=== PATIENT | female | born 1975 | race Hispanic/Latino ===

== ENCOUNTER 2016-10-04 09:24 | Emergency (ER) | payer SELFPAY ==
[2016-10-04 09:57] VITALS: BP 112/64
--- NOTE | 2016-10-04 11:24 | XRay Report ---
ROUTINE CHEST, TWO VIEWS: HISTORY: Cough. The trachea, heart, mediastinal contour, lung olson and bony thorax are unremarkable. IMPRESSION: Unremarkable chest x-ray.
--- NOTE | 2016-10-04 11:37 | Emergency Department Report ---
- General Chief Complaint: Upper Respiratory Infection Stated Complaint: CHEST PAIN, RIGHT SIDE HURTS Time Seen by Provider: 10/04/16 10:44 Source: patient Mode of arrival: Ambulatory Limitations: No Limitations - History of Present Illness Initial Comments: Patient is a 41-year-old female who presents due to cough, sinus pressure and nasal congestion 4 days. Patient states that she went to her primary care provider 3 days ago and was diagnosed with influenza virus. Patient says that she was prescribed cold remedies and Tamiflu. Patient states that she felt better the next day but the symptoms returned. Patient states that she has chest wall pain when coughing. Patient denies any shortness of breath or dyspnea on exertion. Patient states that she had a fever on but has not had a fever since. Patient denies any nausea, vomiting or diaphoresis. She denies any arm pain, patient denies any history of CAD MD Complaint: fever, cough, sore throat, nasal congestion Onset/Timin -: days(s) Severity scale (0 -10): 7 Quality: sharp Consistency: intermittent Improves With: nothing Worsens With: other (coughing) Associated Symptoms: headache, rhinorrhea, nasal congestion, sore throat, cough , dysuria. denies: chest pain, shortness of breath, abdominal pain, nausea, vomiting, diarrhea, rash, confusion, weight loss, epistaxis, hoarseness, ear pain, other Treatments Prior to Arrival: "cold medicine", other (tamiflu) - Related Data Previous Rx's Medication Instructions Recorded Last Taken Type Azithromycin [Zithromax Z-CASIE] 250 mg PO DAILY #6 tab 10/04/16 Unknown Rx Fluticasone [Flonase] 1 spray NS QDAY #1 bottle 10/04/16 Unknown Rx Ibuprofen [Motrin 800 MG tab] 800 mg PO Q8HR PRN #30 tablet 10/04/16 Unknown Rx guaiFENesin/CODEINE [Robitussin AC] 5 ml PO Q6HR PRN #120 oral.liqd 10/04/16 Unknown Rx Allergies Allergy/AdvReac Type Severity Reaction Status Date / Time Penicillins Allergy Swelling Verified 10/04/16 09:57 ED Review of Systems ROS: Stated complaint: CHEST PAIN, RIGHT SIDE HURTS Other details as noted in HPI Comment: All other systems reviewed and negative Constitutional: no symptoms reported. denies: chills, diaphoresis, fever, malaise, weakness Eyes: denies: eye pain, eye discharge, vision change ENT: throat pain, congestion. denies: ear pain, dental pain, hearing loss, epistaxis Respiratory: cough. denies: orthopnea, shortness of breath, SOB with exertion, SOB at rest, stridor, wheezing Cardiovascular: chest pain. denies: palpitations, dyspnea on exertion, orthopnea, edema, syncope, paroxysmal nocturnal dyspnea Endocrine: no symptoms reported Gastrointestinal: denies: abdominal pain, nausea, vomiting, diarrhea, constipation, hematemesis, melena, hematochezia Genitourinary: denies: urgency, dysuria, frequency, hematuria, discharge, abnormal menses, dyspareunia Musculoskeletal: denies: back pain Skin: denies: rash, lesions Neurological: headache. denies: weakness, numbness, paresthesias, confusion Psychiatric: denies: anxiety ED Past Medical Hx - Medications Home Medications: Home Medications Medication Instructions Recorded Confirmed Last Taken Type Azithromycin [Zithromax Z-CASIE] 250 mg PO DAILY #6 tab 10/04/16 Unknown Rx Fluticasone [Flonase] 1 spray NS QDAY #1 bottle 10/04/16 Unknown Rx Ibuprofen [Motrin 800 MG tab] 800 mg PO Q8HR PRN #30 tablet 10/04/16 Unknown Rx guaiFENesin/CODEINE [Robitussin AC] 5 ml PO Q6HR PRN #120 oral.liqd 10/04/16 Unknown Rx ED Physical Exam - General Limitations: No Limitations General appearance: alert, in no apparent distress - Head Head exam: Present: atraumatic, normocephalic, normal inspection - Eye Eye exam: Present: normal appearance, PERRL, EOMI Pupils: Present: normal accommodation - ENT ENT exam: Present: normal exam, normal orophraynx, mucous membranes moist, TM's normal bilaterally, normal external ear exam. Absent: mucous membranes dry - Neck Neck exam: Present: normal inspection, meningismus, full ROM. Absent: tenderness, lymphadenopathy, thyromegaly - Respiratory Respiratory exam: Present: normal lung sounds bilaterally. Absent: respiratory distress, wheezes, rales, rhonchi, stridor, chest wall tenderness, accessory muscle use, decreased breath sounds, prolonged expiratory - Cardiovascular Cardiovascular Exam: Present: regular rate, normal rhythm, normal heart sounds - GI/Abdominal GI/Abdominal exam: Present: soft, normal bowel sounds. Absent: distended, tenderness, guarding, rebound, rigid - Extremities Exam Extremities exam: Present: normal inspection, full ROM. Absent: tenderness - Back Exam Back exam: Present: normal inspection, full ROM. Absent: tenderness - Neurological Exam Neurological exam: Present: alert, oriented X3, normal gait - Psychiatric Psychiatric exam: Present: normal affect, normal mood - Skin Skin exam: Present: warm, dry, intact ED Course Vital Signs 10/04/16 09:52 Temperature 99.3 F Pulse Rate 81 Respiratory 18 Rate Blood Pressure 112/64 O2 Sat by Pulse 100 Oximetry ED Medical Decision Making - EKG Data EKG shows normal: sinus rhythm Rate: normal - EKG Data Interpretation: no acute changes, normal EKG - Radiology Data Radiology results: report reviewed, image reviewed interpreted by me: Chest x-ray showed no consolidation or infiltrate - Medical Decision Making Patient was in no acute distress, vital signs and in normal limits. Patient had clear bilateral lung sounds with good air exchange, normal oropharynx, normal bilateral tympanic membranes. Patient had no active chest pain in the ER. Chest x-ray showed no infiltrates or consolidation. EKG showed normal sinus rhythm with heart rate of 82 bpm. Patient was discharged with azithromycin for bronchitis, guaifenesin with codeine for cough, Flonase for nasal congestion. Ibuprofen for pain or fever. Patient was told to follow-up with her primary care provider to return to the ER for any complications. Patient verbalized understanding. - Differential Diagnosis URI, sinusitis, bronchitis, pneumonia Critical care attestation.: If time is entered above; I have spent that time in minutes in the direct care of this critically ill patient, excluding procedure time. ED Disposition Clinical Impression: Rhinosinusitis, Bronchitis Disposition: DISCHARGED TO HOME OR SELFCARE Is pt being admited?: No Does the pt Need Aspirin: No Condition: Good Instructions: Acute Bronchitis (ED), Sinusitis (ED) Additional Instructions: Take azithromycin 5 day course as prescribed, take ibuprofen 800 mg every 8 hours as needed for pain or fever. Take guaifenesin with codeine 1 teaspoon every 6 hours as needed for cough. Apply Flonase spray to each nostril daily. Follow-up with your primary care provider or return to the ER for any complications. Prescriptions: Azithromycin [Zithromax Z-CASIE] 250 mg PO DAILY #6 tab Fluticasone [Flonase] 1 spray NS QDAY #1 bottle guaiFENesin/CODEINE [Robitussin AC] 5 ml PO Q6HR PRN #120 oral.liqd PRN Reason: Cough Ibuprofen [Motrin 800 MG tab] 800 mg PO Q8HR PRN #30 tablet PRN Reason: pain or fever Referrals: PRIMARY CARE,MD [Primary Care Provider] - 3-5 Days Time of Disposition: 11:38
== END 2016-10-04 11:49 | disposition home or self-care (01) ==
LOC: ED 09:24
DX: J40 Bronchitis, not specified as acute or chronic (principal); J32.9 Chronic sinusitis, unspecified; Z88.0 Allergy status to penicillin
CPT/HCPCS: 71020; 93005; 93010; 99283